=== PATIENT | female | born 1985 | race Caucasian/White ===

== ENCOUNTER 2022-12-01 00:07 | Emergency (ER) | payer MEDICAID, OTHER ==
[~2022-12-01] VITALS: Ht 157.5 cm; Wt 79.4 kg
[2022-12-01 00:25] VITALS: BP 119/59
--- NOTE | 2022-12-01 00:37 | NUR ---
Patient discharged to home in stable condition. Written and verbal after care instructions given. Patient verbalizes understanding of instruction.
== END 2022-12-01 00:38 | disposition home or self-care (01) ==
LOC: ER 00:23
DX: R10.11 Right upper quadrant pain (principal)

== ENCOUNTER 2024-10-09 20:36 | Emergency (ER) | payer MEDICAID ==
[~2024-10-09] VITALS: Ht 157.5 cm; Wt 77.1 kg
[2024-10-09 21:36] LABS: BASOPHILS % (AUTO) 0.5 % (0.0-2.0); EOSINOPHILS # (AUTO) 0.1 K/uL (0.0-0.7); EOSINOPHILS % (AUTO) 1.2 % (0.0-6.0); HEMATOCRIT 35 % (33-45); HEMOGLOBIN 11.7 g/dL (11.5-14.8); LYMPHOCYTES # (AUTO) 2.4 K/uL (0.8-4.8); LYMPHOCYTES % (AUTO) 39.2 % (20.0-44.0); MEAN CORPUSCULAR HEMOGLOBIN 28 PG (26.0-33.0); MEAN CORPUSCULAR HGB CONC 34 g/dl (31.0-36.0); MEAN CORPUSCULAR VOLUME 82 fL (82-100); MONOCYTES # (AUTO) 0.4 K/uL (0.1-1.30); MONOCYTES % (AUTO) 6.3 % (2.0-12.0); NEUTROPHILS # (AUTO) 3.3 K/uL (1.8-8.9); NEUTROPHILS % (AUTO) 52.8 % (43.0-81.0); PLATELET COUNT (AUTO) 240 K/uL (150-450); RED BLOOD CELL COUNT(AUTO) 4.24 MIL/uL (4.0-5.2); RED CELL DISTRIBUTION WIDTH 13.2 % (11.5-15.0); WHITE BLOOD COUNT (AUTO) 6.2 K/uL (4.3-11.0)
[2024-10-09 21:46] LABS: CALCIUM, SERUM 8.8 mg/dL (8.5-10.1); CARBON DIOXIDE 27 mmol/L (21-32); CHLORIDE 106 mmol/L (98-107); CREATININE 0.8 mg/dL (0.6-1.3); GLUCOSE 84 mg/dL (74-106); SODIUM SERUM 140 mmol/L (136-145); UREA NITROGEN, BLOOD 18 mg/dL (7-18)
[2024-10-09] MEDS ORDERED: KETOROLAC TROMETHAMINE 15 MG/ML VIAL ONE (22:42)
[2024-10-09] MEDS: KETOROLAC TROMETHAMINE 15 MG/ML VIAL IV ONE (22:48)
[2024-10-09] MEDS ORDERED: KETO10TA2 PO (23:18)
[2024-10-09 23:36] VITALS: BP 106/66; TEMP 97.6; O2SAT 98
== END 2024-10-09 23:37 | disposition home or self-care (01) ==
LOC: ER 20:49
DX: R07.81 Pleurodynia (principal); R07.89 Other chest pain
CPT/HCPCS: 36415; 71045-TC; 80048-TC; 84484-TC; 85025-TC; 85378-TC; J1885